=== PATIENT | male | born 1965 | race Caucasian/White ===

== ENCOUNTER 2024-09-15 23:16 | Emergency (ER) | payer SELFPAY ==
[~2024-09-15] VITALS: Ht 165.1 cm; Wt 65.0 kg
[2024-09-15] MEDS ORDERED: LEVETIRACETAM 1000MG PREMIX 100 ML IV ONE (23:30)
[2024-09-15] MEDS ORDERED: SODIUM CHLORIDE 0.9% 1,000 ML IV ONE (23:30)
[2024-09-15 23:32] VITALS: BP 160/106; PULSE 91; RESP 16; TEMP 98.7; O2SAT 100
== END 2024-09-16 00:10 | disposition left against medical advice (07) ==
LOC: ER 23:16
DX: F10.20 Alcohol dependence, uncomplicated (principal); R56.9 Unspecified convulsions; Y90.9 Presence of alcohol in blood, level not specified
CPT/HCPCS: 99283; J7030